=== PATIENT | male | born 1965 | race Caucasian/White ===

== ENCOUNTER 2017-05-12 07:03 | Inpatient (IN) | payer BC, OTHER ==
[~2017-05-12] VITALS: Ht 175.3 cm; Wt 145.6 kg
[2017-05-12] MEDS ORDERED: LEVE1INJ5 SC (07:11)
[2017-05-12] MEDS ORDERED: ATEN50TA2 PO (07:11)
[2017-05-12] MEDS ORDERED: FENO160T10 PO (07:11)
[2017-05-12] MEDS ORDERED: LISIPOW (07:11)
[2017-05-12] MEDS ORDERED: METF500T4 PO (07:11)
[2017-05-12] MEDS ORDERED: TRUL0.5I SC (07:11)
[2017-05-12] MEDS ORDERED: GLIP10TA6 PO (07:11)
[2017-05-12] MEDS ORDERED: LISI20TA PO (07:12)
[2017-05-12] MEDS ORDERED: ASPIRIN 81 MG CHEW TABLET PO ONE (07:45)
[2017-05-12 07:54] LABS: BASO % 0.3 % (0.0-1.0); EOS # 0.1 K/mm3 (0.0-0.50); EOS % 0.5 % (0.0-3.0); LARGE UNSTAINED CELL # 0.2 K/mm3 (0.0-0.4); LARGE UNSTAINED CELL % 1.7 % (0.0-4.0); LYMPH # 1.3 K/mm3 (1.5-4.5); LYMPH % 10.8 % (24.0-44.0); MEAN CORPUSCULAR HEMOGLOBIN 29.2 pg (27.0-33.0); MEAN CORPUSCULAR HGB CONC 34.8 g/dl (32.0-36.5); MEAN CORPUSCULAR VOLUME 83.8 fl (80.0-96.0); MONO # 0.8 K/mm3 (0.0-0.8); MONO % 6.6 % (0.0-5.0); NEUTROPHILS # 9.3 K/mm3 (1.8-7.7); PLATELET COUNT, AUTOMATED 214 k/mm3 (150-450); RED CELL DISTRIBUTION WIDTH 13.3 % (11.5-14.5); WHITE BLOOD COUNT 11.6 K/mm3 (4.0-10.0)
[2017-05-12] MEDS ORDERED: TYLE325C PO (08:10)
[2017-05-12 08:15] LABS: ALBUMIN 3.6 GM/DL (3.2-5.2); ALBUMIN/GLOBULIN RATIO 1.13 (1.00-1.93); ALKALINE PHOSPHATASE 47 U/L (45-117); ALT/SGPT 30 U/L (12-78); ANION GAP 8 MEQ/L (8-16); AST/SGOT 8 U/L (15-37); BILIRUBIN,DIRECT 0.2 MG/DL (0.0-0.2); BILIRUBIN,TOTAL 0.9 MG/DL (0.2-1.0); BLOOD UREA NITROGEN 14 MG/DL (7-18); CARBON DIOXIDE LEVEL 29 MEQ/L (21-32); CHLORIDE LEVEL 97 MEQ/L (98-107); CREATININE FOR GFR 1.25 MG/DL (0.70-1.30); GLOMERULAR FILTRATION RATE > 60.0 (>56); GLUCOSE, FASTING 322 MG/DL (70-105); POTASSIUM SERUM 4.1 MEQ/L (3.5-5.1); SODIUM LEVEL 134 MEQ/L (136-145); TOTAL PROTEIN 6.8 GM/DL (6.4-8.2)
[2017-05-12] MEDS ORDERED: AMOX500C PO ×2 (08:32→09:00)
--- NOTE | 2017-05-12 08:39 | REP ---
Acute abdominal series five views including upright PA chest, two supine views of the abdomen and two upright views of the abdomen: There are no comparisons. PA chest: The lung lynn are clear. Cardiac size is normal. The rohith, mediastinum, and bony thorax are unremarkable. There is no free subdiaphragmatic air. Impression: Negative PA chest Abdomen, supine and upright views: The bowel gas pattern is normal with the exception of a focally the dilated loop of small bowel in the right lower quadrant, possibly focal ileus. There are several vesicle calcifications bilaterally. No other calcifications. The skeletal structures and soft tissues are otherwise unremarkable. Impression: Focally dilated small bowel loop in the right lower quadrant, nonspecific, possibly focal ileus. Seminal vesicle calcifications. Otherwise, negative supine upright abdomen. Signed by Jorgito Harper MD 05/12/2017 08:31 A
--- NOTE | 2017-05-12 10:16 | REP ---
RIGHT UPPER QUADRANT ULTRASOUND: Real-time sonographic evaluation of the right upper quadrant performed. The gallbladder is moderately distended, however, no gallstones are seen. There is no gallbladder wall thickening. There does appear to be mild sludge in the gallbladder. There is no free fluid. There is no intrahepatic or extrahepatic biliary dilatation, common bile duct measuring 5 mm in diameter. Survey images of the liver demonstrate diffuse heterogeneous increased echotexture compatible with diffuse fibrofatty infiltration. No gross mass is seen of the liver or pancreas. Pancreas is not well seen due to overlying bowel gas. Right kidney demonstrates no hydronephrosis with normal size at 13 cm in length. Please note the study is limited due to patient body habitus. IMPRESSION: Mild sludge in a moderately distended gallbladder but no gallstones, gallbladder wall thickening, pericholecystic or biliary dilatation. Diffuse fibrofatty infiltration of the liver. Signed by Jorgito Weller MD 05/12/2017 01:46 P
[2017-05-12] MEDS ORDERED: GASTROGRAFIN SOLUTION 30ML (Q9963) As Ordered ONE (10:22)
[2017-05-12] MEDS ORDERED: GASTROGRAFIN SOLUTION 30ML PO ONE (10:30)
[2017-05-12] MEDS ORDERED: GASTROGRAFIN SOLUTION 30ML (Q9963) PO ONE (11:00)
[2017-05-12] MEDS ORDERED: ISOVUE-370 76% 100ML VIAL (Q9967) As Ordered ONE (11:46)
--- NOTE | 2017-05-12 12:34 | REP ---
CT of the abdomen and pelvis with IV contrast: Comparison is the ultrasound performed earlier today. There is mild induration along the ventral surface of the pancreas compatible with the clinical impression of pancreatitis. There is no pseudocyst or abscess. There is no pancreatic duct dilatation. No pancreatic mass is identified. The visualized lung lynn are unremarkable. The hepatic parenchyma is hypodense compatible with hepato steatosis but otherwise unremarkable. There is cholelithiasis without biliary duct dilatation. The spleen is unremarkable. The adrenals, kidneys and abdominal aorta are unremarkable. There is no ascites. There is no bowel distension. There is an umbilical hernia containing omental fat. No bowel wall. The peritoneal defect measures 3.1 cm. The hernia sac measures 10 cm. Pelvis: The bladder is unremarkable. There are bilateral seminal vesicle calcifications. There is no adenopathy or ascites. The pelvic bowel loops are unremarkable. Impression: There are findings compatible with the clinical impression of pancreatitis. There is no pancreatic mass, pseudocyst or abscess. No ascites or adenopathy. Hepato steatosis. Cholelithiasis. No biliary duct dilatation. Signed by Jorgito Harper MD 05/12/2017 12:25 P
[2017-05-12] MEDS ORDERED: SODIUM CHLORIDE 0.9% 1000 ML IV SCH (13:00)
[2017-05-12] MEDS: NS 1,000 ML IV SCH ×2 (13:00→17:00)
[2017-05-12] MEDS ORDERED: MORPHINE 2 MG/ML 1ML SYRINGE IV PRN (13:00)
[2017-05-12] MEDS ORDERED: ONDANSETRON 4MG/2ML VIAL (J2405) IV PRN (13:00)
[2017-05-12] MEDS ORDERED: NALOXONE INJ 0.4 MG/1 ML VIAL (J2310) IV STA (13:06)
[2017-05-12] MEDS ORDERED: GLUCOSE 4 GM CHEW TABLET PO PRN (13:15)
[2017-05-12] MEDS ORDERED: PERCOCET 5MG/325MG TAB PO PRN (13:15)
[2017-05-12] MEDS ORDERED: DEXTROSE 50% 50 ML SYRINGE IV PRN (13:15)
[2017-05-12] MEDS ORDERED: GLUCAGON FOR INJ 1 MG VIAL (J1610) SC PRN (13:15)
[2017-05-12] MEDS ORDERED: ACET50TAOT PO (13:21)
[2017-05-12] MEDS ORDERED: VITMTA PO (13:21)
[2017-05-12 13:39] LABS: GAMMA GLUTAMYLTRANSPEPTIDASE 21 U/L (15-85)
--- NOTE | 2017-05-12 14:48 | HPE ---
DATE OF ADMISSION: 05/12/2017 PRIMARY CARE PROVIDER: [facility] [place] INPATIENT HOSPITALIST: DR. FIDE LAMAS CHIEF COMPLAINT: Mid back pain. 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 The patient said that it was progressively worsening throughout the day. Had taken one tablet of Tylenol 500 mg with no relief. Last night he had decrease in appetite and was not able to eat his usual solid meal but had no nausea or vomiting, fever, chills, constipation, or diarrhea. Pain then began to change into the epigastric region across the upper abdomen with radiation to the mid back. He felt very hot last evening. Unable to sleep, which prompted him to come to the emergency room today due to worsening discomfort. He has had no prior episodes of this. He denies any cough, any documented fevers, chills, or pleuritic pain. The patient denies any chest pain , pressure, tightness, lightheadedness, or dizziness. Denies any heavy alcohol abuse. No prior history of gallstones. Denies any recent trauma to the abdomen. Denies any prior history of hyperglycemia or hypercalcemia. Emergency room called for admission for acute pancreatitis and the patient was found to have gallbladder sludge on an ultrasound. CT consistent with mild pancreatitis, lipase level of 472. Cardiac markers are negative. EKG was unremarkable and showed sinus rhythm with no ischemic symptoms. PAST MEDICAL HISTORY: 1. Diabetes. 2. Hypertension. 3. Morbid obesity, Body Mass Index (BMI) of 50. 4. Metabolic syndrome. 5. Possible obstructive sleep apnea. PAST SURGICAL HISTORY: 1. Tonsillectomy as a child. SOCIAL HISTORY: Denies any smoking. 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 Drinks beer once a week. FAMILY HISTORY: Mother alive at age 71, diabetes. Father at age 58 with coronary artery disease and myocardial infarction. Had three myocardial infarctions in the past. Two younger sisters alive and well. REVIEW OF SYSTEMS: As per history of present illness. 12-point system otherwise negative. PHYSICAL EXAMINATION: Temperature is 98.6, pulse is sinus rhythm with ventricular rate of 70 to 82, respiratory rate of 16, blood pressure 130/60, 95% pulse oximetry on room air. GENERAL: The patient is awake, alert, oriented times three. Answering questions appropriately. Anicteric sclerae. No jaundice. Neck is supple. Full range of motion. Moist mucous membranes. Pupils are round and reactive. Extraocular muscles are intact. LUNGS: Diminished but clear to auscultation. No wheezing, rales or rhonchi. HEART: S1, S2. Sinus rhythm. No murmurs, rubs or gallops. ABDOMEN: Soft, tender in the left upper quadrant/epigastric region. No rebound , guarding. Positive bowel sounds times four quadrants. Obese abdomen. EXTREMITIES: No pitting edema, cyanosis, or clubbing. LABORATORY DATA: White count 11.6, hemoglobin 13, hematocrit 39, platelet count 214, 80% neutrophils. Sodium 134, potassium 4, chloride 97, bicarbonate 29, BUN 14, creatinine 1.25, glucose 322, calcium 9, total bilirubin 0.9, direct bilirubin 0.2, GTT of 21, AST 80, ALT 30, alkaline phosphatase 47, total CK 75, MB fraction 1, relative index 1.33, troponin less than 0.02, C-reactive protein is 7.36, total protein 6.8, albumin 3.6, lipase 472. IMAGING STUDIES: Abdominal x-ray on 05/12/2017: Lung lynn are clear. Cardiac size is normal. Mediastinum and bony thorax were unremarkable. No free subdiaphragmatic air. Negative PA of the chest. Ultrasound of the gallbladder showed mild sludge in the moderately distended gallbladder with no gallstones. Gallbladder wall thickening. Pericholecystic or biliary dilatation. Diffuse fibrofatty infiltration of the liver. CT of the abdomen and pelvis with mild pancreatitis with induration along the ventral surface of the pancreas. No pseudocyst or abscess. Hepatic parenchyma compatible with hepatosteatosis but unremarkable. No ascites. Umbilical hernia containing omental fat. Hernia measured 7 cm. ASSESSMENT AND PLAN: This is a 52-year-old male with history of morbid obesity , BMI of over 50, diabetes, hypertension, metabolic syndrome, umbilical hernia, tonsillectomy as a child. No prior history of smoking. Drinks one beer a week occasionally. Presented to the emergency room with a 24 hour history of mid back pain and epigastric/abdominal discomfort, which is progressive and achy, presented to the emergency room for evaluation. He was found to have epigastric tenderness with elevated lipase of 472. Ultrasound showing gallbladder sludging and CT showing mild pancreatitis. The patient was admitted as an inpatient for two midnights. Assigned to the hospitalist, Dr. Fide Lamas, hospitalist service at 7:00 p.m. on 05/12/2017 for the following acute issues: 1. Acute mild pancreatitis secondary to gallbladder sludging. The patient will be admitted to the medical/surgical floor, nothing by mouth status, intravenous fluids. Monitor for clinical response. As needed pain medications and bowel regimen. Check lipid panel to rule out hypertriglyceridemia as the cause for the patient's pancreatitis. Advance diet as tolerated if pain resolves and lipase level improves. The patient denies a history of alcohol use with negative gamma-glutamyltransferase. If persistent symptoms, patient may need a laparoscopic cholecystectomy as an outpatient if recurrent pancreatitis secondary to biliary sludging. If the patient develops elevated bilirubin with acute cholecystitis, may need drainage placed if fever, increased white count, worsening bilirubin occurs. 2. Diabetes, nothing by mouth status. Hypoglycemic protocol. Insulin sliding scale. Fingersticks every 6 hours while nothing by mouth to prevent hypoglycemia. The patient's glipizide and metformin will be held due to nothing by mouth status and recent contrast study. 3. Hypertension. The patient's lisinopril and hydrochlorothiazide will be held for now. Due to risk of dehydration, we will change to Norvasc or hydralazine or Imdur. Continue with atenolol. Titrate as needed for better blood pressure control. 4. Hyperlipidemia. Check lipid panel. Hold on fenofibrate for now. 5. Deep vein thrombosis (DVT) prophylaxis with subcutaneous heparin. 6. Nutrition. Nothing by mouth status with normal saline for 2 liters and D5 half normal saline once the patient is adequately hydrated to prevent hypoglycemia. The patient will be assigned to Dr. Fide Lamas at 7:00 p.m. on 05/12/2017. [facility]
[2017-05-12 17:15] VITALS: BP 141/76
--- NOTE | 2017-05-12 20:09 | ECGEPIP ---
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
[2017-05-12] MEDS: HEPARIN SOD (PORCINE) 5000 UNITS/ML VIAL SC SCH (21:38)
[2017-05-12] MEDS: LEVEMIR (INSULIN DETEMIR) 1 UNITS/0.01ML SC SCH (21:39)
[2017-05-12 22:00] VITALS: BP 163/74
[2017-05-12] MEDS: ATENOLOL 50 MG TAB PO SCH (22:58)
[2017-05-13] MEDS: D5W/0.45% SODIUM CHLORIDE 1,000 ML IV SCH ×3 (00:16→10:26)
[2017-05-13] MEDS: HEPARIN SOD (PORCINE) 5000 UNITS/ML VIAL SC SCH ×3 (05:03→21:09)
[2017-05-13 06:00] VITALS: BP 151/72
[2017-05-13] MEDS ORDERED: HumaLOG INSULIN (NovoLOG) PER UNIT SC SCH ×2 (06:00→21:00)
[2017-05-13 06:28] LABS: BASO % 0.6 % (0.0-1.0); EOS # 0.1 K/mm3 (0.0-0.50); LARGE UNSTAINED CELL # 0.2 K/mm3 (0.0-0.4); LARGE UNSTAINED CELL % 1.9 % (0.0-4.0); LYMPH # 1.5 K/mm3 (1.5-4.5); LYMPH % 17.9 % (24.0-44.0); MEAN CORPUSCULAR HEMOGLOBIN 29.1 pg (27.0-33.0); MEAN CORPUSCULAR HGB CONC 34.5 g/dl (32.0-36.5); MEAN CORPUSCULAR VOLUME 84.4 fl (80.0-96.0); MONO # 0.5 K/mm3 (0.0-0.8); MONO % 5.7 % (0.0-5.0); NEUTROPHILS % 72.9 % (36.0-66.0); PLATELET COUNT, AUTOMATED 208 k/mm3 (150-450); RED CELL DISTRIBUTION WIDTH 13.4 % (11.5-14.5); WHITE BLOOD COUNT 8.3 K/mm3 (4.0-10.0)
[2017-05-13 07:02] LABS: ALBUMIN 3.3 GM/DL (3.2-5.2); ALKALINE PHOSPHATASE 53 U/L (45-117); ALT/SGPT 24 U/L (12-78); AMYLASE 85 U/L (25-115); ANION GAP 8 MEQ/L (8-16); AST/SGOT 10 U/L (15-37); BILIRUBIN,TOTAL 0.8 MG/DL (0.2-1.0); BLOOD UREA NITROGEN 13 MG/DL (7-18); CALCIUM LEVEL 8.3 MG/DL (8.5-10.1); CARBON DIOXIDE LEVEL 28 MEQ/L (21-32); CHLORIDE LEVEL 99 MEQ/L (98-107); CREATININE FOR GFR 1.23 MG/DL (0.70-1.30); GLOMERULAR FILTRATION RATE > 60.0 (>56); GLUCOSE, FASTING 303 MG/DL (70-105); MAGNESIUM LEVEL 1.6 MG/DL (1.8-2.4); POTASSIUM SERUM 4.5 MEQ/L (3.5-5.1); SODIUM LEVEL 135 MEQ/L (136-145); TOTAL PROTEIN 6.3 GM/DL (6.4-8.2); TRIGLYCERIDES LEVEL 209 MG/DL (<150)
[2017-05-13] MEDS ORDERED: hydroCHLOROthiazide 12.5 MG CAPSULE PO SCH (09:00)
[2017-05-13] MEDS ORDERED: LISINOPRIL 20 MG TAB PO SCH (09:00)
[2017-05-13] MEDS: ATENOLOL 50 MG TAB PO SCH ×2 (09:02→21:08)
[2017-05-13 10:08] VITALS: BP 170/81
[2017-05-13] MEDS ORDERED: DEXTROSE 50% 50 ML SYRINGE IV PRN (11:00)
[2017-05-13] MEDS ORDERED: GLUCAGON FOR INJ 1 MG VIAL (J1610) SC PRN (11:00)
[2017-05-13] MEDS ORDERED: GLUCOSE 4 GM CHEW TABLET PO PRN (11:00)
[2017-05-13] MEDS: HumaLOG INSULIN (NovoLOG) PER UNIT SC SCH ×2 (12:19→18:33)
[2017-05-13] MEDS: MAG SULF 1GM/100ML (MAG RUN) 1 GM in APPROPRIATE DILUENT 1 EA IV SCH ×2 (13:15→14:15)
--- NOTE | 2017-05-13 13:36 | IPNPDOC ---
Subjective Date Seen The patient was seen on 05/13/17. Subjective Chief Complaint/HPI Patient seen and examined at the bedside. States that his nausea, abdominal pain has improved significantly overnight. Denies any other acute complaints at this time. Objective Physical Examination General Exam: Positive: Alert, Cooperative, No Acute Distress, Other (morbidly obese) ENT Exam: Positive: Atraumatic, Mucous membr. moist/pink Neck Exam: Negative: JVD Chest Exam: Positive: Clear to auscultation, Normal air movement Heart Exam: Positive: Rate Normal, Normal S1, Normal S2 Abdomen Exam: Positive: Soft, Negative: Tenderness Extremity Exam: Negative: Tenderness, Swelling Psych Exam: Positive: Oriented x 3 Assessment /Plan Plan/VTE VTE Prophylaxis Ordered?: Yes Plan Pancreatitis 2/2 Gallstones U/S GB notable for sludge CT Abd/Pel notable for cholelithiasis, pancreatitis No biliary ductal dilatation noted Patient's abdominal pain, nausea much improved today IV fluid hydration discontinued We will transition the patient to a clear by mouth diet, and advance as tolerated The patient will need a follow-up as an outpatient for possible cholecystectomy Diabetes mellitus Continue Levemir, insulin sliding scale Hypertension Continue lisinopril, HCTZ, atenolol DVT Prophylaxis Heparin SC VS, I&O, 24H, Fishbone Vital Signs/I&O Vital Signs Date Time Temp Pulse Resp B/P (MAP) Pulse Ox O2 Delivery O2 Flow Rate FiO2 05/13/17 10:08 96.5 74 18 170/81 (110) 94 Room Air I&O- Last 24 Hours up to 6 AM 05/14/17 06:00 Intake Total 0 ml Output Total 0 ml Balance 0 ml Laboratory Data 24H LABS Laboratory Tests 2 05/12/17 17:25: Bedside Glucose (Misc Panel) 270H 05/12/17 17:43: Total Creatine Kinase 71, Creatine Kinase MB 1.0, Creatine Kinase MB Relative Index 1.40, Troponin I < 0.02 05/12/17 21:38: Bedside Glucose (Misc Panel) 252H 05/12/17 23:46: Total Creatine Kinase 68, Creatine Kinase MB 1.0, Creatine Kinase MB Relative Index 1.47, Troponin I < 0.02 05/13/17 05:07: Bedside Glucose (Misc Panel) 289H 05/13/17 06:04: White Blood Count 8.3, Red Blood Count 4.51, Hemoglobin 13.1L, Hematocrit 38.1L , Mean Corpuscular Volume 84.4, Mean Corpuscular Hemoglobin 29.1, Mean Corpuscular Hemoglobin Concent 34.5, Red Cell Distribution Width 13.4, Platelet Count 208, Neutrophils (%) (Auto) 72.9H, Lymphocytes (%) (Auto) 17.9L, Monocytes (%) (Auto) 5.7H, Eosinophils (%) (Auto) 1.0, Basophils (%) (Auto) 0.6 , Neutrophils # (Auto) 6.0, Lymphocytes # (Auto) 1.5, Monocytes # (Auto) 0.5, Eosinophils # (Auto) 0.1, Basophils # (Auto) 0.0, Large Unclassified Cells % 1.9 , Large Unclassified Cells # 0.2, Anion Gap 8, Glomerular Filtration Rate > 60.0 , Blood Urea Nitrogen 13, Creatinine 1.23, Sodium Level 135L, Potassium Level 4.5, Chloride Level 99, Carbon Dioxide Level 28, Calcium Level 8.3L, Aspartate Amino Transf (AST/SGOT) 10L, Alanine Aminotransferase (ALT/SGPT) 24, Total Creatine Kinase 81, Alkaline Phosphatase 53, Total Bilirubin 0.8, Triglycerides Level 209H, Total Protein 6.3L, Albumin 3.3, Magnesium Level 1.6L, Creatine Kinase MB 1.0, Creatine Kinase MB Relative Index 1.23, Troponin I < 0.02, Albumin/Globulin Ratio 1.10, Amylase Level 85, Lipase 2353H CBC/BMP Laboratory Tests 05/13/17 06:04 Red Blood Count 4.51, Mean Corpuscular Volume 84.4, Mean Corpuscular Hemoglobin 29.1, Mean Corpuscular Hemoglobin Concent 34.5, Red Cell Distribution Width 13.4 , Neutrophils (%) (Auto) 72.9 H, Lymphocytes (%) (Auto) 17.9 L, Monocytes (%) ( Auto) 5.7 H, Eosinophils (%) (Auto) 1.0, Basophils (%) (Auto) 0.6, Neutrophils # (Auto) 6.0, Lymphocytes # (Auto) 1.5, Monocytes # (Auto) 0.5, Eosinophils # ( Auto) 0.1, Basophils # (Auto) 0.0, Calcium Level 8.3 L, Aspartate Amino Transf ( AST/SGOT) 10 L, Alanine Aminotransferase (ALT/SGPT) 24, Total Creatine Kinase 81 , Alkaline Phosphatase 53, Total Bilirubin 0.8, Triglycerides Level 209 H, Total Protein 6.3 L, Albumin 3.3 HECTOR CHEN MD May 13, 2017 13:36
[2017-05-13] MEDS: LISINOPRIL 40 MG TAB PO SCH (14:15)
[2017-05-13] MEDS: hydroCHLOROthiazide 25 MG TAB PO SCH (14:15)
[2017-05-13 14:37] VITALS: BP 131/76
[2017-05-13] MEDS: LEVEMIR (INSULIN DETEMIR) 1 UNITS/0.01ML SC SCH (21:00)
[2017-05-13 22:00] VITALS: BP 139/74
[2017-05-14] MEDS: HEPARIN SOD (PORCINE) 5000 UNITS/ML VIAL SC SCH (05:37)
[2017-05-14 06:00] VITALS: BP 124/70
[2017-05-14 07:27] LABS: ALBUMIN 3.2 GM/DL (3.2-5.2); ALBUMIN/GLOBULIN RATIO 0.86 (1.00-1.93); ALKALINE PHOSPHATASE 54 U/L (45-117); ALT/SGPT 23 U/L (12-78); ANION GAP 6 MEQ/L (8-16); AST/SGOT 9 U/L (15-37); BILIRUBIN,TOTAL 0.6 MG/DL (0.2-1.0); BLOOD UREA NITROGEN 15 MG/DL (7-18); CARBON DIOXIDE LEVEL 31 MEQ/L (21-32); CHLORIDE LEVEL 100 MEQ/L (98-107); CREATININE FOR GFR 1.21 MG/DL (0.70-1.30); GLOMERULAR FILTRATION RATE > 60.0 (>56); GLUCOSE, FASTING 256 MG/DL (70-105); POTASSIUM SERUM 4.1 MEQ/L (3.5-5.1); SODIUM LEVEL 137 MEQ/L (136-145); TOTAL PROTEIN 6.9 GM/DL (6.4-8.2)
[2017-05-14 07:31] LABS: BASO % 0.7 % (0.0-1.0); EOS # 0.2 K/mm3 (0.0-0.50); EOS % 2.7 % (0.0-3.0); LARGE UNSTAINED CELL # 0.2 K/mm3 (0.0-0.4); LARGE UNSTAINED CELL % 3.3 % (0.0-4.0); LYMPH # 1.7 K/mm3 (1.5-4.5); LYMPH % 27.4 % (24.0-44.0); MEAN CORPUSCULAR HEMOGLOBIN 29.3 pg (27.0-33.0); MEAN CORPUSCULAR HGB CONC 34.8 g/dl (32.0-36.5); MEAN CORPUSCULAR VOLUME 84.3 fl (80.0-96.0); MONO # 0.4 K/mm3 (0.0-0.8); MONO % 5.6 % (0.0-5.0); NEUTROPHILS # 3.7 K/mm3 (1.8-7.7); NEUTROPHILS % 60.3 % (36.0-66.0); PLATELET COUNT, AUTOMATED 237 k/mm3 (150-450); RED CELL DISTRIBUTION WIDTH 13.2 % (11.5-14.5); WHITE BLOOD COUNT 6.2 K/mm3 (4.0-10.0)
[2017-05-14] MEDS: HumaLOG INSULIN (NovoLOG) PER UNIT SC SCH (08:12)
[2017-05-14] MEDS: LISINOPRIL 40 MG TAB PO SCH (08:13)
[2017-05-14] MEDS: hydroCHLOROthiazide 25 MG TAB PO SCH (08:13)
[2017-05-14 08:15] VITALS: BP 137/72
[2017-05-14 08:52] VITALS: BP 125/65
[2017-05-14 09:38] VITALS: BP 135/81
[2017-05-14] MEDS: ATENOLOL 50 MG TAB PO SCH (09:38)
--- NOTE | 2017-05-14 12:00 | DS.PDOC ---
Discharge Summary General Date of Admission May 12, 2017 at 13:00 Date of Discharge 05/14/17 Discharge Summary PROCEDURES PERFORMED DURING STAY: None. ADMITTING/DISCHARGE DIAGNOSES: 1. . Pancreatitis 2. . Cholelithiasis 3. . Hypertension 4. . Diabetes mellitus COMPLICATIONS/CHIEF COMPLAINT: Acute Pancreatitis. HISTORY OF PRESENT ILLNESS: . 52-year-old male with past medical history of hypertension, diabetes, morbid obesity, and metabolic syndrome presents to the ER with a chief complaint of pain that began in the right upper quadrant and across the abdomen. The patient states that he has had a decreased appetite and was not able to eat anything due to associated nausea and abdominal. He denied any complaints of fevers, chills, chest pain, shortness of breath, or any diarrhea. He came to the emergency room for further evaluation. In the ER, lab work revealed elevated lipase levels and an U/S of the GB revealed mild sludge and a moderately distended gallbladder but no gallstones, or wall thickening. A CT scan of the Abd revealed cholelithiasis. The patient was admitted to the hospitalist service for further evaluation and management. During hospitalization, the patient was started on IV fluid hydration and kept nothing by mouth, and was provided medications for pain. The patient's abdominal pain, and nausea subsequent improved. He was started on a liquid diet , which was advanced as tolerated. At this time, the patient states that he is feeling much better and denies any other acute complaints. In light of the patient's CT abdomen findings of cholelithiasis, I have recommended the patient follow-up with his primary care physician and obtain a referral for surgery for possible cholecystectomy in the future. I have recommended patient follow-up with his primary care physician within 7-10 days. In addition, the patient has been consulted to return to the ER if his condition worsens to persist, worsen, or any other acute emergencies. DISCHARGE MEDICATIONS: Please see below. ALLERGIES: Please see below. PHYSICAL EXAMINATION ON DISCHARGE: VITAL SIGNS: Please see below. General Exam: Positive: Alert, Cooperative, No Acute Distress, Other (morbidly obese) ENT Exam: Positive: Atraumatic, Mucous membr. moist/pink Neck Exam: Negative: JVD Chest Exam: Positive: Clear to auscultation, Normal air movement Heart Exam: Positive: Rate Normal, Normal S1, Normal S2 Abdomen Exam: Positive: Soft, Negative: Tenderness Extremity Exam: Negative: Tenderness, Swelling Psych Exam: Positive: Oriented x 3 LABORATORY DATA: Please see below. IMAGING: CT of the abdomen and pelvis with IV contrast: Comparison is the ultrasound performed earlier today. There is mild induration along the ventral surface of the pancreas compatible with the clinical impression of pancreatitis. There is no pseudocyst or abscess. There is no pancreatic duct dilatation. No pancreatic mass is identified. The visualized lung lynn are unremarkable. The hepatic parenchyma is hypodense compatible with hepato steatosis but otherwise unremarkable. There is cholelithiasis without biliary duct dilatation. The spleen is unremarkable. The adrenals, kidneys and abdominal aorta are unremarkable. There is no ascites. There is no bowel distension. There is an umbilical hernia containing omental fat. No bowel wall. The peritoneal defect measures 3.1 cm. The hernia sac measures 10 cm. Pelvis: The bladder is unremarkable. There are bilateral seminal vesicle calcifications. There is no adenopathy or ascites. The pelvic bowel loops are unremarkable. Impression: There are findings compatible with the clinical impression of pancreatitis. There is no pancreatic mass, pseudocyst or abscess. No ascites or adenopathy. Hepato steatosis. Cholelithiasis. No biliary duct dilatation RIGHT UPPER QUADRANT ULTRASOUND: Real-time sonographic evaluation of the right upper quadrant performed. The gallbladder is moderately distended, however, no gallstones are seen. There is no gallbladder wall thickening. There does appear to be mild sludge in the gallbladder. There is no free fluid. There is no intrahepatic or extrahepatic biliary dilatation, common bile duct measuring 5 mm in diameter. Survey images of the liver demonstrate diffuse heterogeneous increased echotexture compatible with diffuse fibrofatty infiltration. No gross mass is seen of the liver or pancreas. Pancreas is not well seen due to overlying bowel gas. Right kidney demonstrates no hydronephrosis with normal size at 13 cm in length. Please note the study is limited due to patient body habitus. IMPRESSION: Mild sludge in a moderately distended gallbladder but no gallstones, gallbladder wall thickening, pericholecystic or biliary dilatation. Diffuse fibrofatty infiltration of the liver. PROGNOSIS: Fair ACTIVITY: As tolerated. DIET: . Carb consistent diet DISCHARGE PLAN: DISPOSITION: 01 Home, Self-Care. DISCHARGE INSTRUCTIONS: 1. . Follow-up with primary care physician within 7 days 2. . Obtain surgery referral as an outpatient for possible outpatient cholecystectomy ITEMS TO FOLLOWUP ON ON OUTPATIENT: 1. . Return to the ER for any acute emergencies DISCHARGE CONDITION: Stable. TIME SPENT ON DISCHARGE: Greater than 30 minutes. Vital Signs/I&Os Vital Signs Date Time Temp Pulse Resp B/P (MAP) Pulse Ox O2 Delivery O2 Flow Rate FiO2 05/14/17 09:38 71 135/81 05/14/17 08:52 96.5 18 94 Room Air I&O- Last 24 Hours up to 6 AM 05/15/17 05:59 Intake Total 720 ml Output Total 1250 ml Balance -530 ml Laboratory Data Labs 24H Laboratory Tests 2 05/13/17 17:54: Bedside Glucose (Misc Panel) 346H 05/13/17 20:21: Bedside Glucose (Misc Panel) 257H 05/14/17 06:28: White Blood Count 6.2, Red Blood Count 4.54, Hemoglobin 13.3L, Hematocrit 38.3L , Mean Corpuscular Volume 84.3, Mean Corpuscular Hemoglobin 29.3, Mean Corpuscular Hemoglobin Concent 34.8, Red Cell Distribution Width 13.2, Platelet Count 237, Neutrophils (%) (Auto) 60.3, Lymphocytes (%) (Auto) 27.4, Monocytes ( %) (Auto) 5.6H, Eosinophils (%) (Auto) 2.7, Basophils (%) (Auto) 0.7, Neutrophils # (Auto) 3.7, Lymphocytes # (Auto) 1.7, Monocytes # (Auto) 0.4, Eosinophils # (Auto) 0.2, Basophils # (Auto) 0.0, Large Unclassified Cells % 3.3 , Large Unclassified Cells # 0.2, Anion Gap 6L, Glomerular Filtration Rate > 60.0, Blood Urea Nitrogen 15, Creatinine 1.21, Sodium Level 137, Potassium Level 4.1, Chloride Level 100, Carbon Dioxide Level 31, Calcium Level 9.0, Aspartate Amino Transf (AST/SGOT) 9L, Alanine Aminotransferase (ALT/SGPT) 23, Alkaline Phosphatase 54, Total Bilirubin 0.6, Total Protein 6.9, Albumin 3.2, Albumin/Globulin Ratio 0.86L, Lipase 514H CBC/BMP Laboratory Tests 05/14/17 06:28 Red Blood Count 4.54, Mean Corpuscular Volume 84.3, Mean Corpuscular Hemoglobin 29.3, Mean Corpuscular Hemoglobin Concent 34.8, Red Cell Distribution Width 13.2 , Neutrophils (%) (Auto) 60.3, Lymphocytes (%) (Auto) 27.4, Monocytes (%) (Auto ) 5.6 H, Eosinophils (%) (Auto) 2.7, Basophils (%) (Auto) 0.7, Neutrophils # ( Auto) 3.7, Lymphocytes # (Auto) 1.7, Monocytes # (Auto) 0.4, Eosinophils # (Auto ) 0.2, Basophils # (Auto) 0.0, Calcium Level 9.0, Aspartate Amino Transf (AST/ SGOT) 9 L, Alanine Aminotransferase (ALT/SGPT) 23, Alkaline Phosphatase 54, Total Bilirubin 0.6, Total Protein 6.9, Albumin 3.2 FSBS Laboratory Tests Test 05/13/17 17:54 05/13/17 20:21 Range/Units Bedside Glucose (Misc Panel) 346 257 70-105 MG/DL Discharge Medications Scheduled (Trulicity) 1.5 Mg/0.5 Ml Inj, 1.5 MG SC QWEEK, (Reported) MONDAYS (Lisinopril/Hydrochlorothi 20-12.5 mg) 1 Tab Tab, 2 TABS PO DAILY, (Reported) Atenolol (Atenolol) 50 Mg Tab, 50 MG PO BID, (Reported) Fenofibrate (Fenofibrate) 160 Mg Tab, 160 MG PO DAILY, (Reported) Glipizide (Glipizide) 10 Mg Tab, 10 MG PO BID, (Reported) Insulin Detemir (Levemir Flextouch) 100 Unit/Ml Inj, 31 UNITS SC QHS, (Reported) Metformin Hydrochloride (Metformin HCl ER) 500 Mg Tab, 1,000 MG PO BIDWM, ( Reported) Multivitamins *[facility] STOCKED* (Thera M Plus *[facility] STOCKED*) 1 Tab Tab, 1 TAB PO DAILY, (Reported) Scheduled PRN Acetaminophen (Acetaminophen) 500 Mg Tab, 500 MG PO for PAIN, (Reported) Allergies Coded Allergies: Statins (Verified Allergy, Unknown, 05/12/17) HECTOR CHEN MD May 14, 2017 12:00
[2017-05-14] MEDS ORDERED: LEVEMIR (INSULIN DETEMIR) 1 UNITS/0.01ML SC SCH (21:00)
== END 2017-05-14 11:30 | disposition home or self-care (01) | DRG 282 ==
LOC: M ED 07:03 → M ED INP 13:00 → M MSPAV 17:20
PROVIDERS: ADMIT General Practice; ATTEND Internal Medicine
DX: K85.90 Acute pancreatitis without necrosis or infection, unspecified (principal); Z68.43 Body mass index [BMI] 50.0-59.9, adult; I10 Essential (primary) hypertension; E66.01 Morbid (severe) obesity due to excess calories; E11.9 Type 2 diabetes mellitus without complications; K80.20 Calculus of gallbladder without cholecystitis without obstruction; Z79.899 Other long term (current) drug therapy; Z79.4 Long term (current) use of insulin; Z88.8 Allergy status to other drugs, medicaments and biological substances; E78.5 Hyperlipidemia, unspecified

== ENCOUNTER → 2018-03-22 | Outpatient (CLI) | payer OTHER | LOC: M RAD 12:13 | DX: N18.3 Chronic kidney disease, stage 3 (moderate) (principal) | CPT/HCPCS: 76775 ==

== ENCOUNTER 2018-10-19 14:20 | Emergency (ER) | payer OTHER ==
[~2018-10-19] VITALS: Ht 175.3 cm; Wt 147.7 kg
[~2018-10-19 14:20] MED LIST: ACET500T15 PO; AMOX500C PO; ATEN50TA2 PO; FENO160T10 PO; GLIP10TA6 PO; LEVE1INJ5 SC; LISI20TA PO; LISIPOW; METF500T4 PO; TRUL0.5I SC; TYLE325C PO; VITMTA PO
[2018-10-19] MEDS ORDERED: JARD1TAB (14:28)
[2018-10-19] MEDS ORDERED: ASPI1TAB PO (14:28)
[2018-10-19 15:08] LABS: BASO # 0.1 10^3/uL (0.0-0.2); BASO % 0.8 % (0.0-1.0); EOS % 0.6 % (0.0-3.0); HEMATOCRIT 42.9 % (42.0-52.0); HEMOGLOBIN 14.1 g/dl (13.5-17.5); LYMPH # 0.4 10^3/uL (1.5-4.5); LYMPH % 6.1 % (24.0-44.0); MEAN CORPUSCULAR HEMOGLOBIN 27.4 pg (27.0-33.0); MEAN CORPUSCULAR HGB CONC 32.9 g/dl (32.0-36.5); MEAN CORPUSCULAR VOLUME 83.5 fl (80.0-96.0); MONO # 0.6 10^3/uL (0.0-0.8); MONO % 9.4 % (0.0-5.0); NEUTROPHILS # 5.3 10^3/uL (1.8-7.7); NEUTROPHILS % 82.6 % (36.0-66.0); PLATELET COUNT, AUTOMATED 194 10^3/uL (150-450); RED BLOOD COUNT 5.14 10^6/uL (4.30-6.10); WHITE BLOOD COUNT 6.4 10^3/uL (4.0-10.0)
[2018-10-19] MEDS ORDERED: NS 1,000 ML IV ONE ×2 (15:30→17:00)
[2018-10-19] MEDS ORDERED: ONDANSETRON 4MG/2ML VIAL (J2405) IV ONE (15:30)
[2018-10-19] MEDS ORDERED: MORPHINE 2 MG/ML 1ML SYRINGE (J2270) IV PRN (15:30)
[2018-10-19 15:55] LABS: ALBUMIN 3.9 GM/DL (3.2-5.2); ALT/SGPT 39 U/L (12-78); BILIRUBIN,DIRECT 0.2 MG/DL (0.0-0.2); BILIRUBIN,TOTAL 0.5 MG/DL (0.2-1.0); BLOOD UREA NITROGEN 18 MG/DL (7-18); CARBON DIOXIDE LEVEL 26 MEQ/L (21-32); CHLORIDE LEVEL 94 MEQ/L (98-107); CREATININE FOR GFR 1.27 MG/DL (0.70-1.30); GLOMERULAR FILTRATION RATE > 60.0 (>56); GLUCOSE, FASTING 295 MG/DL (70-100); LIPASE 235 U/L (73-393); POTASSIUM SERUM 4.5 MEQ/L (3.5-5.1); SODIUM LEVEL 130 MEQ/L (136-145)
[2018-10-19] MEDS ORDERED: ISOVUE-370 76% 100ML VIAL (Q9967) As Ordered ONE (17:03)
[2018-10-19] MEDS: GASTROGRAFIN SOLUTION 30ML PO SCH ×2 (17:08→17:40)
[2018-10-19] MEDS ORDERED: ACETAMINOPHEN TAB 650MG DOSE (2X325MG) PO ONE (17:15)
--- NOTE | 2018-10-19 18:59 | REP ---
Clinical: Abdominal pain. Technique: Axial contrast enhanced images from the lung bases to the pubic symphysis using oral (per protocol) and 100 ml Isovue 370 intravenous contrast material with coronal and sagittal re-formations. Comparison: By 1917. Findings: Small area of multinodular consolidation in the left lung base requires followup. Fatty infiltration to the liver noted without focal hepatic lesion. Spleen, pancreas, bilateral adrenal glands and kidneys are normal. Cholelithiasis noted without evidence for acute cholecystitis. The enteric system is without obstruction or acute inflammatory process. Normal terminal ileum and appendix are identified in the right lower quadrant. Pelvis demonstrates normal bladder and age appropriate prostate/seminal vesicles. No ascites. No free air. No adenopathy. 10 cm fat containing periumbilical hernia unchanged with a peritoneal defect measuring approximately 3 cm diameter. Musculoskeletal structures demonstrate degenerative changes without focal osseous abnormality. Impression: 1. Small area of nodular consolidation in the left lower lobe requires short-term follow-up to resolution. 2. Hepatosteatosis. 3. Cholelithiasis. 4. 10 cm fat containing periumbilical hernia remains stable. Electronically Signed by Bob Iraheta MD 10/19/2018 06:50 P
[2018-10-19 19:26] VITALS: BP 155/75
--- NOTE | 2018-10-20 17:07 | ED PDOC ---
Post-Departure Follow-Up keysha quiles faxed formal report of ct abd/p fo rfu Anupama Pickering MD Oct 20, 2018 17:07
== END 2018-10-19 20:02 | disposition home or self-care (01) ==
LOC: M ED 14:20
DX: K80.20 Calculus of gallbladder without cholecystitis without obstruction (principal); R91.1 Solitary pulmonary nodule; K76.0 Fatty (change of) liver, not elsewhere classified; K42.9 Umbilical hernia without obstruction or gangrene; E11.9 Type 2 diabetes mellitus without complications; M54.9 Dorsalgia, unspecified; Z87.19 Personal history of other diseases of the digestive system; Z88.8 Allergy status to other drugs, medicaments and biological substances; Z79.899 Other long term (current) drug therapy; Z79.4 Long term (current) use of insulin; Z79.82 Long term (current) use of aspirin
CPT/HCPCS: 74177; 80048; 80076; 81001; 83605; 83690; 85025; 96374; 96375; 99284; J2270; J2405; Q9963; Q9967

== ENCOUNTER → 2018-11-01 | Outpatient (CLI) | payer OTHER ==
[~2018-11-01] MED LIST changes: +ASPI1TAB PO; +ISOVUE-370 76% 100ML VIAL (Q9967) As Ordered ONE; +JARD1TAB
--- NOTE | 2018-11-02 07:26 | REP ---
Clinical: Follow up irregular consolidations. Comparison: Abdominal CT dated 10/19/2018. Technique: Axial contrast enhanced images from the thoracic inlet to the upper abdomen with coronal and sagittal re-formations using 100 ml Isovue 370 intravenous contrast material. Findings: Scattered bilateral ill-defined areas of alveolar consolidation (left greater than right) are identified along with few prominent mediastinal lymph nodes measuring up to 16 mm noted. No effusion. No pneumothorax. Tracheobronchial tree is patent. Mediastinum demonstrates normal thoracic aorta and pulmonary vasculature. Atherosclerotic changes to the coronary arteries noted without cardiomegaly or pericardial effusion. Surrounding musculoskeletal structures are intact. Limited upper abdomen demonstrates normal bilateral adrenal glands along with evidence for cholelithiasis. Impression: 1. Moderate bilateral ill-defined areas of consolidation with few reactive mediastinal lymph nodes. Findings are nonspecific and clinical correlation is required. Differential diagnosis includes but is not limited to pneumonitis, acute multifocal pneumonia, as well as malignancy such as bronchoalveolar carcinoma which cannot be excluded. Electronically Signed by Bob Iraheta MD 11/02/2018 07:18 A
== END ==
LOC: M RAD 14:33
PROVIDERS: ATTEND Registered Nurse Community Health
DX: R91.1 Solitary pulmonary nodule (principal); I25.10 Atherosclerotic heart disease of native coronary artery without angina pectoris
CPT/HCPCS: 71260; Q9967

== ENCOUNTER → 2018-12-06 | Outpatient (CLI) | payer OTHER ==
[~2018-12-06] MED LIST changes: -ASPI1TAB PO; +ASPI81TA26 PO
--- NOTE | 2018-12-07 07:22 | REP ---
REASON FOR EXAM: Followup lung nodule. COMPARISON: 11/01/2018 which showed moderate bilateral ill-defined areas of consolidation and reactive mediastinal lymphadenopathy. CONTRAST TODAY: 100 mL of Isovue 370. There is no mediastinal or hilar adenopathy. There are no pleural or pericardial effusions. The imaged upper abdomen again shows cholelithiasis. The imaged osseous structures are stable and intact. Evaluation of the lung lynn shows marked improvement in all focal areas of asymmetric and varying degrees of opacification. Minimal residuals are seen in the lung bases. No new abnormal nodules, masses, or opacities have developed. IMPRESSION: Significant improvement with residual findings as described. above. Electronically Signed by John Paul Valadez DO 12/07/2018 12:38 P
== END ==
LOC: M RAD 17:15
PROVIDERS: ATTEND Internal Medicine Pulmonary Disease
DX: R91.8 Other nonspecific abnormal finding of lung field (principal)

== ENCOUNTER → 2018-12-20 | Outpatient (CLI) | payer OTHER ==
[~2018-12-20] MED LIST changes: -ISOVUE-370 76% 100ML VIAL (Q9967) As Ordered ONE
[2018-12-23 00:06] LABS: ANGIOTENSIN 1 CONVERTING ENZYM 7 U/L (14-82)
== END ==
LOC: M SMT 13:24
PROVIDERS: ATTEND Internal Medicine Pulmonary Disease
DX: G47.30 Sleep apnea, unspecified (principal)

== ENCOUNTER → 2021-04-17 | Outpatient (REF) | payer OTHER ==
[~2021-04-17] MED LIST changes: -LISI20TA PO; +LISI20TA35 PO; +METF-838 PO; -METF500T4 PO
== END ==
LOC: M LAB REF 12:47
PROVIDERS: ATTEND Internal Medicine Nephrology
DX: E83.42 Hypomagnesemia (principal)

== ENCOUNTER → 2021-07-09 | Outpatient (REF) | payer OTHER | LOC: M LAB REF 16:47 | PROVIDERS: ATTEND Internal Medicine Nephrology | DX: E83.42 Hypomagnesemia (principal) ==

== ENCOUNTER → 2023-12-07 | Outpatient (CLI) | payer OTHER ==
[~2023-12-07] MED LIST changes: +INSU100I6 SC; -LEVE1INJ5 SC
== END ==
LOC: M RAD 08:13
PROVIDERS: ATTEND Physician Assistant Medical
DX: K42.0 Umbilical hernia with obstruction, without gangrene (principal)

== ENCOUNTER 2025-06-09 11:11 | Emergency (ER) | payer OTHER ==
[~2025-06-09 11:11] MED LIST changes: +GLIP10TA15 PO; -GLIP10TA6 PO
[2025-06-09 11:22] VITALS: TEMP 97.6
[2025-06-09] MEDS ORDERED: SEMA1PEN2 SQ (11:34)
[2025-06-09] MEDS ORDERED: JARD1TAB3 PO (11:34)
[2025-06-09] MEDS ORDERED: EZET10TA57 PO (11:34)
[2025-06-09] MEDS ORDERED: INSUHUMDS SUBQ (11:34)
[2025-06-09 11:43] LABS: BASO # 0.1 10^3/uL (0.0-0.2); BASO % 1.7 % (0.0-1.0); EOS # 0.2 10^3/uL (0.0-0.5); EOS % 2.2 % (0.0-3.0); LYMPH # 1.9 10^3/uL (1.5-5.0); LYMPH % 23.5 % (24.0-44.0); MONO # 0.7 10^3/uL (0.0-0.8); MONO % 8.8 % (2.0-8.0); NEUTROPHILS # 5.2 10^3/uL (1.5-8.5); NEUTROPHILS % 63.3 % (36.0-66.0); PLATELET COUNT, AUTOMATED 239 10^3/uL (150-450)
[2025-06-09 12:07] LABS: ALT/SGPT 36.0 U/L (7.0-40); AST/SGOT 35.0 U/L (<34); CALCIUM LEVEL 9.1 MG/DL (8.3-10.6); CARBON DIOXIDE LEVEL 28.0 MMOL/L (20-31); CHLORIDE LEVEL 102.0 MMOL/L (98-107); CK-MB VALUE MASS 3.8 NG/ML (<3.6); CREATININE FOR GFR 1.24 MG/DL (0.70-1.30); GLOMERULAR FILTRATION RATE 66.6 (>49); POTASSIUM SERUM 4.6 MMOL/L (3.5-5.1); SODIUM LEVEL 141.0 MMOL/L (136-145)
[2025-06-09 12:08] LABS: CPK CREATINE PHOSPHOKINASE 194.0 U/L (46-171); MB/CK RELATIVE INDEX 1.95 (< OR =4)
[2025-06-09 13:12] LABS: CK-MB VALUE MASS 3.5 NG/ML (<3.6)
[2025-06-09 13:13] LABS: CPK CREATINE PHOSPHOKINASE 176.0 U/L (46-171); MB/CK RELATIVE INDEX 1.98 (< OR =4)
[2025-06-09] MEDS ORDERED: ISOVUE-370 76% 100 ML VIAL As Ordered ONE (14:00)
[2025-06-09 14:45] VITALS: BP 115/58; O2SAT 95
== END 2025-06-09 15:35 | disposition home or self-care (01) ==
LOC: M ED 11:11
DX: R07.9 Chest pain, unspecified (principal); I44.0 Atrioventricular block, first degree; I49.8 Other specified cardiac arrhythmias; E11.9 Type 2 diabetes mellitus without complications; I10 Essential (primary) hypertension; E78.5 Hyperlipidemia, unspecified; G47.33 Obstructive sleep apnea (adult) (pediatric); K75.81 Nonalcoholic steatohepatitis (NASH); I51.7 Cardiomegaly; R16.0 Hepatomegaly, not elsewhere classified; Z88.8 Allergy status to other drugs, medicaments and biological substances; Z79.899 Other long term (current) drug therapy; Z79.4 Long term (current) use of insulin
CPT/HCPCS: 36415; 71045; 71275; 80048; 80076; 82550; 82553; 83690; 84484; 85025; 93005; 93041; 94760; 99285; Q9967